=== PATIENT | female | born 1970 | race Caucasian/White ===

== ENCOUNTER 2019-03-29 14:16 | Emergency (ER) | payer OTHER ==
[~2019-03-29] VITALS: Ht 154.9 cm; Wt 104.5 kg
[2019-03-29 14:45] VITALS: BP 150/94
[2019-03-29] MEDS ORDERED: BACTROBAN TOP (14:57)
[2019-03-29] MEDS ORDERED: CLEOCIN300 MG PO (14:57)
== END 2019-03-29 15:20 | disposition home or self-care (01) | DRG 603 ==
LOC: ED 14:16
DX: L02.411 Cutaneous abscess of right axilla (principal); L01.00 Impetigo, unspecified; K64.9 Unspecified hemorrhoids